=== PATIENT | female | born 1995 | race Native Hawaiian/Other Pacific Islander ===

== ENCOUNTER 2022-07-16 06:17 | Inpatient (IN) ==
[2022-07-16] VITALS (8 sets, daily range): BP systolic 117–138; BP diastolic 58–74
[~2022-07-16] VITALS: Ht 157.5 cm; Wt 84.5 kg
[2022-07-16] MEDS ORDERED: MIDAZOLAM INJ 2MG/2ML VIAL (J2250 PER 1MG) As Ordered ONE (06:24)
[2022-07-16] MEDS ORDERED: fentaNYL 100 MCG/2 ML INJECTION As Ordered ONE (06:24)
[2022-07-16] MEDS ORDERED: SUCCINYLCHOLINE 100 MG/5 ML SYRINGE (J0330) As Ordered ONE (06:25)
[2022-07-16] MEDS ORDERED: propofoL 200 MG/20 ML VIAL As Ordered ONE (06:25)
[2022-07-16] MEDS ORDERED: ceFAZolin 2 GM/D5W 50 ML IV BAG (J0690 PER 500MG) As Ordered ONE (06:35)
[2022-07-16] MEDS ORDERED: OXYTOCIN 30 UNITS IN 0.9% NaCl 500ML IV BAG (J2590) As Ordered ONE ×2 (06:38→07:22)
[2022-07-16] MEDS ORDERED: ceFAZolin SOD 2 GM in IV 1 EA IV ONE (06:40)
[2022-07-16] MEDS ORDERED: ROCURONIUM BROMIDE 50 MG/5 ML VIAL As Ordered ONE (06:54)
[2022-07-16] MEDS ORDERED: MORPHINE PRES-FREE INJ 10 MG/10 ML VIAL As Ordered ONE (06:57)
[2022-07-16 07:00] LABS: HEMATOCRIT 42.1 % (36.0-47.0); HEMOGLOBIN 14.3 g/dl (12.0-15.5); MEAN CORPUSCULAR HEMOGLOBIN 32.6 pg (27.0-33.0); MEAN CORPUSCULAR VOLUME 95.9 fl (80.0-96.0); PLATELET COUNT, AUTOMATED 192 10^3/uL (150-450); RED BLOOD COUNT 4.39 10^6/uL (4.00-5.40); WHITE BLOOD COUNT 7.2 10^3/uL (4.0-10.0)
[2022-07-16] MEDS ORDERED: KETOROLAC 60MG 2ML VIAL As Ordered ONE (07:02)
[2022-07-16] MEDS ORDERED: ACETAMINOPHEN 1000MG 100ML IV BTL (OFIRMEV) (J0131 PER 10MG) As Ordered ONE (07:02)
[2022-07-16] MEDS ORDERED: dexameTHASONE 4 MG/ML 1ML VIAL (J1100 PER 1MG) As Ordered ONE (07:02)
[2022-07-16] MEDS ORDERED: ONDANSETRON 4MG 2ML VIAL As Ordered ONE (07:02)
[2022-07-16] MEDS ORDERED: BUPIVACAINE HCL 0.25% 10ML VIAL As Ordered ONE (07:08)
[2022-07-16] MEDS ORDERED: SUGAMMADEX SODIUM 500 MG/5 ML VIAL (BRIDION) As Ordered ONE (07:09)
[2022-07-16] MEDS ORDERED: BUPIVACAINE HCL 0.25% 10ML VIAL SC ONE (07:10)
[2022-07-16] MEDS ORDERED: TRANEXAMIC ACID INJection 1,000 MG in NS 100 ML IV PRN (07:30)
[2022-07-16] MEDS ORDERED: LR 1,000 ML IV SCH (07:30)
[2022-07-16] MEDS ORDERED: OXYTOCIN DRIP 30 UNITS in IV 1 EA IV ONE (07:30)
[2022-07-16] MEDS ORDERED: OXYTOCIN INJ 10 UNITS/ML VIAL (J2590) IV PRN (07:30)
[2022-07-16] MEDS ORDERED: METHYLERGONOVINE MALEATE 0.2 MG/ML VIAL (J2210) IM PRN ×2 (07:30→07:50)
[2022-07-16] MEDS ORDERED: OXYTOCIN DRIP 30 UNITS in IV 1 EA IV PRN (07:30)
[2022-07-16] MEDS ORDERED: LACTATED RINGER'S 1000 ML IV ONE (07:30)
[2022-07-16 07:46] LABS: CORD GAS ABE A -5.4; CORD GAS HCO3 A 21.7 MEQ/L; CORD GAS O2 SAT A 79.1 %; CORD GAS PCO2 A 47.6 mmHg; CORD GAS PH A 7.276 UNITS; CORD GAS PO2 A 38.7 mmHg; CORD GAS SBC A 19.7 MEQ/L; CORD GAS TCO2 A 23.1 MEQ/L
[2022-07-16] MEDS ORDERED: DOCUSATE SODIUM 100MG CAPSULE PO PRN (07:50)
[2022-07-16] MEDS ORDERED: RHOGAM 300 MCG (1500 IU) INJ (J2790) IM SCH (07:50)
[2022-07-16] MEDS ORDERED: PERCOCET 5MG/325MG TAB PO PRN ×2 (07:50)
[2022-07-16] MEDS ORDERED: SIMETHICONE 80MG CHEW TAB PO PRN (07:50)
[2022-07-16] MEDS ORDERED: OXYTOCIN DRIP 30 UNITS in IV 1 EA IV SCH ×4 (07:50)
[2022-07-16] MEDS ORDERED: ACETAMINOPHEN TAB 650MG DOSE (2X325MG) PO PRN (07:50)
[2022-07-16] MEDS ORDERED: ANUSOL HC CREAM 30GM TOP PRN (07:50)
[2022-07-16] MEDS ORDERED: METHYLERGONOVINE MALEATE 0.2 MG TAB PO PRN (07:50)
[2022-07-16] MEDS ORDERED: ACETAMINOPHEN 500 MG TAB PO PRN (07:50)
[2022-07-16] MEDS ORDERED: MOM 30ML SUSPENSION UDC PO PRN (07:50)
[2022-07-16] MEDS ORDERED: OXYTOCIN INJ 10 UNITS/ML VIAL (J2590) IV ONE (07:50)
[2022-07-16 07:54] LABS: CORD GAS ABE V -3.7; CORD GAS HCO3 V 22.2 MEQ/L; CORD GAS O2 SAT V 66.1 %; CORD GAS PCO2 V 43.2 mmHg; CORD GAS PH V 7.329 UNITS; CORD GAS PO2 V 27.5 mmHg; CORD GAS SBC V 20.7 MEQ/L; CORD GAS TCO2 V 23.5 MEQ/L
[2022-07-16] MEDS: PRENATAL VITAMINS CHEWABLE TABLET PO SCH (09:00)
[2022-07-16] MEDS: LR 1,000 ML IV SCH ×2 (13:50→18:43)
[2022-07-16] MEDS: KETOROLAC 30 MG/ML 1ML VIAL IV SCH ×2 (14:00→18:19)
[2022-07-17] MEDS ORDERED: UNRESOLVED CLARIFICATION ENTRY XX SCH (00:01)
[2022-07-17 02:00] VITALS: BP 117/73
[2022-07-17] MEDS ORDERED: KETOROLAC 30 MG/ML 1ML VIAL As Ordered ONE (03:04)
[2022-07-17] MEDS: KETOROLAC 30 MG/ML 1ML VIAL IV SCH (03:07)
[2022-07-17] MEDS ORDERED: IBUPROFEN 600MG TAB PO PRN (07:00)
[2022-07-17 08:09] LABS: HEMATOCRIT 30.1 % (36.0-47.0); MEAN CORPUSCULAR HEMOGLOBIN 33.3 pg (27.0-33.0); MEAN CORPUSCULAR HGB CONC 33.9 g/dl (32.0-36.5); MEAN CORPUSCULAR VOLUME 98.4 fl (80.0-96.0); PLATELET COUNT, AUTOMATED 154 10^3/uL (150-450); RED BLOOD COUNT 3.06 10^6/uL (4.00-5.40); WHITE BLOOD COUNT 10.4 10^3/uL (4.0-10.0)
[2022-07-17 08:12] LABS: HEMOGLOBIN 10.2 g/dl (12.0-15.5)
[2022-07-17] MEDS: PRENATAL VITAMINS CHEWABLE TABLET PO SCH (08:37)
[2022-07-17 10:00] VITALS: BP 115/69
[2022-07-17 18:00] VITALS: BP 126/73
[2022-07-17 22:00] VITALS: BP 138/73
[2022-07-18 01:56] VITALS: BP 117/70
[2022-07-18 05:30] VITALS: BP 130/60
[2022-07-18] MEDS ORDERED: ACET1TAB55 PO (06:58)
[2022-07-18] MEDS ORDERED: PERCOCET PO (06:58)
[2022-07-18] MEDS ORDERED: IBUP-1022 PO (06:58)
[2022-07-18] MEDS: PRENATAL VITAMINS CHEWABLE TABLET PO SCH (08:35)
[2022-07-18] MEDS ORDERED: MEASLES,MUMPS,RUBELLA VACCINE INJ (MMR-II) (90707) SC.IMMUN ONE (09:00)
[2022-07-18 10:00] VITALS: BP 114/64
== END 2022-07-18 11:35 | disposition home or self-care (01) | DRG 788 ==
LOC: M LDO 06:17 → M LDI 06:24 → M OBS 09:31
PROVIDERS: ADMIT Obstetrics & Gynecology; ATTEND Obstetrics & Gynecology
PROC: 10D00Z1 Extraction of Products of Conception, Low, Open Approach (ICD-10-PCS; principal; 2022-07-16 07:51)
DX: O32.8XX0 Maternal care for other malpresentation of fetus, not applicable or unspecified (principal); Z3A.39 39 weeks gestation of pregnancy; Z37.0 Single live birth

== ENCOUNTER → 2022-07-31 | Outpatient (CLI) | payer OTHER ==
[~2022-07-31] MED LIST: ACET1TAB55 PO; IBUP-1022 PO; PERCOCET PO
[2022-07-31 11:20] LABS: HEMATOCRIT 40.3 % (36.0-47.0); MEAN CORPUSCULAR HEMOGLOBIN 31.7 pg (27.0-33.0); MEAN CORPUSCULAR HGB CONC 32.3 g/dl (32.0-36.5); MEAN CORPUSCULAR VOLUME 98.3 fl (80.0-96.0); PLATELET COUNT, AUTOMATED 306 10^3/uL (150-450); WHITE BLOOD COUNT 5.8 10^3/uL (4.0-10.0)
[2022-07-31 11:21] LABS: APPEARANCE, URINE MANUAL HAZY (CLEAR); COLOR, URINE MANUAL YELLOW (YELLOW); SPECIFIC GRAVITY,URINE MANUAL 1.005 (1.002-1.035)
[2022-07-31 11:22] LABS: BILIRUBIN, URINE MANUAL NEGATIVE (NEGATIVE); BLOOD URINE MANUAL POSITIVE (NEGATIVE); GLUCOSE, URINE (UA) MANUAL NEGATIVE (NEGATIVE); KETONE, URINE MANUAL NEGATIVE (NEGATIVE); LEUKOCYTE ESTERASE, URINE MAN POSITIVE (NEGATIVE); NITRITE, URINE MANUAL NEGATIVE (NEGATIVE); PROTEIN, URINE MANUAL NEGATIVE (NEGATIVE); UROBILINOGEN, URINE MANUAL NORMAL (NORMAL)
[2022-07-31 11:29] LABS: BACTERIA, URINE MOD AMOUNT; MUCUS, URINE SMALL AMOUNT (NEGATIVE); RBC, URINE 15-20 /hpf (0-3); SQUAMOUS EPITHELIAL CELL URINE SMALL AMOUNT /hpf (SMALL AMT); WBC, URINE TNTC /hpf (0-3)
[2022-07-31 11:31] LABS: HYALINE CAST, URINE NONE SEEN /lpf (0-1)
[2022-07-31 12:04] LABS: ALT/SGPT 35 U/L (12-78); BILIRUBIN,TOTAL 0.3 MG/DL (0.2-1.0); CREATININE FOR GFR 0.68 MG/DL (0.55-1.30); GLOMERULAR FILTRATION RATE > 60.0 (>60); LDH LACTATE DEHYDROGENASE 232 U/L (84-246); URIC ACID 8.5 MG/DL (2.6-6.0)
[2022-07-31 15:45] LABS: TOTAL PROTEIN,RANDOM URINE 15.3 MG/DL (0.0-12.0)
== END ==
LOC: M LAB 10:37
PROVIDERS: ATTEND Physical Therapist
DX: I10 Essential (primary) hypertension (principal)